=== PATIENT | female | born 1965 | race Caucasian/White ===

== ENCOUNTER 2019-08-04 07:37 | Day surgery (SDC) | payer OTHER ==
[~2019-08-04] VITALS: Ht 175.3 cm; Wt 95.7 kg
[~2019-08-04 07:37] MED LIST: LOSARTAN POTASS50 MG PO; MAXALT10 MG PO; ZOCOR40 MG PO
--- NOTE | 2019-08-04 08:44 | NUR ---
08/04/19 0844 Louise Gonzalez 0834 PT ARRIVED TO PACU ASLEEP. DECREASED BP NOTED AND FLUIDS INCREASED. 0843 PT WAKES TO TACTILE STIMULI AND REORIENTED TO PACU, PT FALLS EASILY BACK TO SLEEP.
--- NOTE | 2019-08-04 10:22 | OR ---
[facility] [address] [place], [place] [address] Signed DATE OF OPERATION: 08/04/2019 SURGEON: Renan Cortes MD PREOPERATIVE DIAGNOSES: 1. Brother with a history of colonic polyps (age 35). 2. Son diagnosed with Crohn disease, age 26. 3. Diverticulosis. 4. External hemorrhoids. 5. Chronic constipation. POSTOPERATIVE DIAGNOSES: 1. Minimal internal hemorrhoids. 2. Moderate external hemorrhoids. PROCEDURE: Colonoscopy without biopsy. ESTIMATED BLOOD LOSS: None. INDICATIONS: Francia is a 53-year-old female, who was asked to see me for followup colonoscopy. Her brother had colonic polyps removed at age 35 and once after that. He has had a couple more colonoscopies apparently and they have all been fine. He is now into his 50s. Her son was also diagnosed with Crohn disease around age 26. Francia apparently has a few diverticula in the left colon along with some external hemorrhoids. She has a long history of chronic constipation. She returns for followup colonoscopy. In the office, I gave Francia pamphlet on colonoscopy. She understands the nature of the test along with the risks including, but not limited to gas, bloating, crampy abdominal pain, bleeding, perforation requiring surgery, and missed diagnosis. She also understands the need for IV conscious sedation. She had expressed understanding and wished to proceed. PROCEDURE NOTE: Francia was taken into our endoscopy suite and placed in the left lateral decubitus position. She was given a total of 7 mg of Versed and 125 mcg of fentanyl to cover the case. A digital rectal exam was performed and she has moderate-sized circumferential external hemorrhoids. She had good sphincter tone. The adult colonoscope was introduced and advanced under direct visualization of camera. She has a somewhat long redundant colon. It took extra sedation and abdominal compression in order to get the Electronically Signed By: RENAN CORTES MD 08/04/19 1022 PATIENT NAME: FRANCIA LOPEZ OPERATIVE REPORT DATE OF : 61 REPORT #: [id number] PHYSICIAN: RENAN CORTES MD PCP: AMITA KWAN MD REPORT IS CONFIDENTIAL AND NOT TO BE RELEASED WITHOUT AUTHORIZATION [facility] [address] [place], [place] [address] Signed scope to the cecum. Her prep was good. The scope was slowly withdrawn. We could see the kiana's foot and the ileocecal valve. We took pictures throughout for photodocumentation. On this particular occasion, we did not see any diverticula. We did note [id number] internal hemorrhoids. There were no polyps. After this, the gas was suctioned out and the colonoscope removed. Francia tolerated procedure quite well. RECOMMENDATIONS: I will see Francia back in 5 years due to her family history. Renan Cortes MD ALB/TOML /[id number] cc: MD Amita Abdullahi MD Copies: RENAN CORTES MD, RUSSELL BARR MD ~ Electronically Signed By: RENAN CORTES MD 08/04/19 1022 PATIENT NAME: FRANCIA LOPEZ OPERATIVE REPORT DATE OF : 61 REPORT #: [id number] PHYSICIAN: RENAN CORTES MD PCP: AMITA KWAN MD REPORT IS CONFIDENTIAL AND NOT TO BE RELEASED WITHOUT AUTHORIZATION
== END 2019-08-04 09:08 | disposition home or self-care (01) ==
LOC: DS 07:37 → OPS 07:37 → DS 09:00 → OPS 09:00
PROVIDERS: Colon & Rectal Surgery
PROC: 0DJD8ZZ Inspection of Lower Intestinal Tract, Via Natural or Artificial Opening Endoscopic (ICD-10-PCS; principal; 2019-08-04 09:00)
DX: Z12.11 Encounter for screening for malignant neoplasm of colon (principal); K64.8 Other hemorrhoids; K64.4 Residual hemorrhoidal skin tags; K59.09 Other constipation; I10 Essential (primary) hypertension; E78.5 Hyperlipidemia, unspecified; E11.9 Type 2 diabetes mellitus without complications; Z83.71 Family history of colonic polyps; Z79.899 Other long term (current) drug therapy; Z98.890 Other specified postprocedural states
CPT/HCPCS: 99153; G0500; J2250; J3010